=== PATIENT | male | born 1990 | race Caucasian/White ===

== ENCOUNTER 2016-08-11 10:32 | Emergency (ER) | payer BC ==
[~2016-08-11] VITALS: Ht 172.7 cm; Wt 83.9 kg
[2016-08-11 10:41] VITALS: BP 120/74
== END 2016-08-11 13:07 | disposition home or self-care (01) ==
LOC: EME 10:32 → RME 10:32
DX: S61.412A Laceration without foreign body of left hand, initial encounter (principal); W01.10XA Fall on same level from slipping, tripping and stumbling with subsequent striking against unspecified object, initial encounter
CPT/HCPCS: 73130; 99281; 99283

== ENCOUNTER 2017-01-24 07:26 | Emergency (ER) | payer BC ==
[~2017-01-24] VITALS: Ht 172.7 cm; Wt 79.1 kg
[2017-01-24] MEDS ORDERED: PREDNISONE20 MG PO (09:22)
[2017-01-24] MEDS ORDERED: FLEXERIL10 MG PO (09:22)
[2017-01-24 09:38] VITALS: BP 122/78
== END 2017-01-24 09:38 | disposition home or self-care (01) ==
LOC: EME 07:26
DX: M54.41 Lumbago with sciatica, right side (principal); M62.838 Other muscle spasm
CPT/HCPCS: 99281; 99284; J1885; J7512